=== PATIENT | female | born 1960 | race African-American/Black ===

== ENCOUNTER 2022-11-13 14:22 | Emergency (ER) | payer OTHER ==
[~2022-11-13] VITALS: Ht 172.7 cm; Wt 102.1 kg
[~2022-11-13 14:22] MED LIST: ACET-10509 PO; BENA20TA89 PO; HYDR25TA32 PO; IBUP-974 PO; LEVO0.118 PO
[2022-11-13 14:51] VITALS: BP 157/99
--- NOTE | 2022-11-13 14:57 | NUR ---
STATES ALSO HAS SEVERE BRADY. PMH: HTN TAKES HCTZ, NORVASC,BENAZEPRIL, AND LEVOTHYROXINE. STATES TOOK MEDS TODAY.
[2022-11-13] MEDS ORDERED: LIDOCAINE 5% 1 EA PATCH TP SCH (17:20)
[2022-11-13] MEDS ORDERED: OXYC5TAB4 PO (17:33)
[2022-11-13] MEDS ORDERED: CYCL-711 PO (17:33)
[2022-11-13] MEDS ORDERED: ACET-10509 PO (17:34)
--- NOTE | 2022-11-13 17:47 | NUR ---
PER DR OCONNOR, DC NOW. PAPER RX OF TYENOL EXTRA STRENGHT, FLEXERIL, AND OXYCODONE BY DR OCONNOR.
[2022-11-14] MEDS ORDERED: LIDOCAINE 5% 1 EA PATCH TP SCH (09:00)
== END 2022-11-13 17:47 | disposition home or self-care (01) ==
LOC: MED 14:22
DX: R20.0 Anesthesia of skin (principal); R11.2 Nausea with vomiting, unspecified; I10 Essential (primary) hypertension; E07.9 Disorder of thyroid, unspecified; Z88.0 Allergy status to penicillin; Z88.2 Allergy status to sulfonamides; Z79.899 Other long term (current) drug therapy; V89.2XXA Person injured in unspecified motor-vehicle accident, traffic, initial encounter; Y93.89 Activity, other specified; Y92.89 Other specified places as the place of occurrence of the external cause; Y99.8 Other external cause status
CPT/HCPCS: 72125; 99284

== ENCOUNTER 2022-11-13 20:32 | Emergency (ER) | payer OTHER ==
[~2022-11-13 20:32] MED LIST changes: +CYCL-711 PO; +OXYC5TAB4 PO
--- NOTE | 2022-11-13 20:56 | NUR ---
NOTIFIED BY ADMITTING THAT PT NO LONGER WISHES TO BE SEEN. PT LEFT PRIOR TO TRIAGE.
== END 2022-11-13 20:56 | disposition left against medical advice (07) ==
LOC: MED 20:32
DX: Z53.21 Procedure and treatment not carried out due to patient leaving prior to being seen by health care provider (principal)